=== PATIENT | male | born 1950 | race African-American/Black ===

== ENCOUNTER 2024-02-17 04:45 | Day surgery (SDC) | payer OTHER ==
[2024-01-21 15:23] VITALS: BMI 27.3
[~2024-02-17 04:45] MED LIST: LACTATED RINGERS SOLUTION 1,000 ML IV SCH; ONDANSETRON 4 MG/2 ML VIAL IVPUSH PRN; PROMETHAZINE HCL 25 MG/1 ML VIAL IVPB PRN; oxyCODONE HCL 5 MG TABLET PO PRN
[2024-02-17] MEDS ORDERED: BOTULINUM TOXIN A 100 UNITS VIAL IM ONE (07:30)
[2024-02-17] MEDS ORDERED: PROPOFOL 40 ML ONE (09:37)
[2024-02-17] MEDS ORDERED: SUCCINYLCHOLINE CHLORIDE 200 MG/10 ML SYRINGE ONE (09:42)
[2024-02-17] MEDS ORDERED: ONDANSETRON 4 MG/2 ML VIAL ONE (09:42)
[2024-02-17] MEDS ORDERED: MIDAZOLAM HCL 2 MG/2 ML SINGLE DOSE VIAL ONE (09:43)
[2024-02-17] MEDS ORDERED: DEXTROSE 5%-0.45% SALINE 1,000 ML IV SCH (09:45)
[2024-02-17] MEDS: ceFAZolin SODIUM 1 GM VIAL IVPB ONE (10:11)
[2024-02-17] MEDS ORDERED: ceFAZolin SODIUM 1 GM VIAL ONE (10:13)
[2024-02-17] MEDS ORDERED: SODIUM CHLORIDE 0.9% P/F 10 ML VIAL IJ ONE ×2 (10:13)
[2024-02-17] MEDS: ONABOTULINUMTOXINA 200 UNIT/VIAL VIAL IM ONE (10:21)
[2024-02-17 13:51] VITALS: RESP 20; TEMP 97
[2024-02-17 13:53] VITALS: BP 134/74; PULSE 67
== END 2024-02-17 12:38 | disposition home or self-care (01) ==
LOC: JASU-SURG 04:45
PROVIDERS: ATTEND Urology
PROC: 0TJB8ZZ Inspection of Bladder, Via Natural or Artificial Opening Endoscopic (ICD-10-PCS; principal; 2024-02-17 09:00)
PROC: 3E0K8GC Introduction of Other Therapeutic Substance into Genitourinary Tract, Via Natural or Artificial Opening Endoscopic (ICD-10-PCS; 2024-02-17 09:00)
DX: N32.81 Overactive bladder (principal); N39.41 Urge incontinence; N40.0 Benign prostatic hyperplasia without lower urinary tract symptoms; E11.22 Type 2 diabetes mellitus with diabetic chronic kidney disease; N18.30 Chronic kidney disease, stage 3 unspecified; D57.3 Sickle-cell trait; K59.00 Constipation, unspecified
CPT/HCPCS: 82962; 94760; J0585